=== PATIENT | male | born 1990 | race Caucasian/White ===

== ENCOUNTER 2022-04-21 13:34 | Emergency (ER) | payer BC ==
[~2022-04-21] VITALS: Ht 172.7 cm; Wt 99.8 kg
[2022-04-21 13:42] VITALS: BP 170/110
[2022-04-21] MEDS ORDERED: ALBU0.0912 INH (15:00)
== END 2022-04-21 15:06 | disposition home or self-care (01) ==
LOC: MED 13:34
DX: J06.9 Acute upper respiratory infection, unspecified (principal); H11.33 Conjunctival hemorrhage, bilateral; R55 Syncope and collapse
CPT/HCPCS: 71045; 93005; 99284